=== PATIENT | female | born 1975 | race Caucasian/White ===

== ENCOUNTER 2019-02-01 12:41 | Outpatient (REF) | payer OTHER, SELFPAY ==
--- NOTE | 2019-02-01 10:15 | PAPFT_PTH ---
PATIENT: Lolita Guardado LOC: [facility] U#:[id number] AGE/SX: 43/F ROOM: RE02/01/[address]: Leonor Jensen : 1975 BED: DIS: 02/01/2019 SPEC #: [id number] RECD: 02/01/19 13:08 STATUS: TSERING REQ #: [id number] CHINO: 02/01/19 10:[address]: Leonor Jensen DEPT: [facility] Cytology RECD BY: Aura Burr Tissues: 1 - CX/ENDOCX FOR PAP SMEARS Procedures: PAP THIN PREP/[facility] Screening Comments: [id number]
== END 2019-02-01 13:01 ==
LOC: NCHCN 12:41
PROVIDERS: PCP Nurse Practitioner Family; Visit Provider Nurse Practitioner Family
DX: Z00.00 Encounter for general adult medical examination without abnormal findings (principal); Z12.4 Encounter for screening for malignant neoplasm of cervix
CPT/HCPCS: 88142

== ENCOUNTER 2019-02-08 09:17 | Outpatient (REF) | payer OTHER, SELFPAY ==
[2019-02-08 13:54] LABS: Anion Gap 7.4 mmol/L (3-11); BUN 17 mg/dL (7-18); CO2 27.6 mmol/L (21.0-32.0); Calcium 8.6 mg/dL (8.5-10.1); Chloride 106 mmol/L (98-107); Cholesterol 177 mg/dL (50-200); Glucose 91 mg/dL (70-100); HDL Cholesterol 69 mg/dL (40-60); LDL CHOLESTEROL 93 mg/dL (<100); Potassium 4.6 mmol/L (3.5-5.1); Sodium 141 mmol/L (136-145); TSH (W/Ref FT4) 1.69 uIU/mL (0.358-3.74); Triglyceride 45 mg/dL (30-150)
== END 2019-02-08 09:37 ==
LOC: NCHCN 09:17
PROVIDERS: PCP Nurse Practitioner Family; Visit Provider Nurse Practitioner Family
DX: Z00.00 Encounter for general adult medical examination without abnormal findings (principal); Z13.29 Encounter for screening for other suspected endocrine disorder; Z13.228 Encounter for screening for other metabolic disorders; Z13.220 Encounter for screening for lipoid disorders
CPT/HCPCS: 80048; 80061; 83721; 84443

== ENCOUNTER 2022-01-31 01:35 | Outpatient (REF) | payer OTHER, SELFPAY ==
[2022-01-31 16:20] LABS: BUN 26 mg/dL (7-18); CREATININE 0.7 mg/dL (0.55-1.02); Calcium 8.6 mg/dL (8.5-10.1); Calculated LDL 102 mg/dL (<100); Chloride 108 mmol/L (98-107); Cholesterol 179 mg/dL (<200); Glucose 97 mg/dL (74-106); HDL Cholesterol 71 mg/dL (40-60); Potassium 4.5 mmol/L (3.5-5.1); Sodium 143 mmol/L (136-145); Triglyceride 33 mg/dL (<150)
== END 2022-01-31 01:36 | disposition home or self-care (01) ==
LOC: NCHCN 01:35
PROVIDERS: PCP Nurse Practitioner Family; Visit Provider Nurse Practitioner Family
DX: Z00.00 Encounter for general adult medical examination without abnormal findings (principal); Z13.228 Encounter for screening for other metabolic disorders; Z13.220 Encounter for screening for lipoid disorders
CPT/HCPCS: 80048; 80061

== ENCOUNTER 2022-02-18 17:06 | Outpatient (REF) | payer OTHER, SELFPAY ==
--- NOTE | 2022-02-18 15:50 | PAPFT_PTH ---
PATIENT: Lolita Guardado LOC: [facility] #:[id number] AGE/SX: 46/F ROOM: RE02/18/[address]: Leonor Jensen : 1975 BED: DIS: 02/18/2022 SPEC #: [id number] RECD: 02/18/22 18:33 STATUS: TSERING REJames #: [id number] CHINO: 02/18/22 15:[address]: Leonor Jensen DEPT: [facility] Cytology RECD BY: Aura Burr Tissues: 1 - CX/ENDOCX FOR PAP SMEARS Procedures: PAP THIN PREP/[facility] Screening HPV DNA PROBE Comments: [id number]
== END 2022-02-18 17:07 | disposition home or self-care (01) ==
LOC: NCHCN 17:06
PROVIDERS: PCP Nurse Practitioner Family; Visit Provider Nurse Practitioner Family
DX: Z00.00 Encounter for general adult medical examination without abnormal findings (principal); Z12.4 Encounter for screening for malignant neoplasm of cervix; Z11.51 Encounter for screening for human papillomavirus (HPV)
CPT/HCPCS: 88142; 87624

== ENCOUNTER → 2022-03-06 01:46 | Outpatient (CLI) | payer OTHER, SELFPAY ==
--- NOTE | 2022-03-06 | DI.MRI_ITS ---
Exam(s) MR BRAIN WO/W EXAM: MR BRAIN WO/W CLINICAL HISTORY: FAM HX MULTIPLE SCLEROSIS Z84.89 MUSCLE WEAKNESS M62.81 VISION CHANGES H53. TECHNIQUE: Multiplanar multisequence MRI of the brain was performed. Both noninfused and contrast i nfused sequences were performed. IV Contrast injected was 11 cc Dotarem. COMPARISON: No exams were available for comparison FINDINGS: CEREBRAL PARENCHYMA: No evidence of intracranial hemorrhage, mass effect nor shift of midline structu re. No extraaxial fluid collections. Ventricles are not enlarged nor shifted. There is no significant focal signal abnormality in the cerebellar hemispheres nor within the eldon, m idbrain, and thalami. There is no abnormal signal abnormality in the periventricular white matter. DWI: No areas of restricted diffusion evident. SWI: No evidence of microhemorrhages. There are no ring enhancing lesions in the brain. There is no abnormal meningeal enhancement. PITUITARY GLAND: The pituitary gland appears confined to the floor of the sella turcica, consistent w ith empty sella syndrome. There is no deviation of the pituitary infundibulum. No masses in the sup rasellar cistern. Optic chiasm above this level unremarkable. FLOW VOIDS: The expected flow void are noted. No evidence of obvious aneurysm nor obvious vascular ma lformation. PARANASAL SINUSES: The visualized paranasal sinuses appear unremarkable. ORBITS: No obvious abnormal findings. IMPRESSION: 1. No evidence of demyelinating disease (given the family history here). 2. No abnormal enhancing intracranial findings. 3. Empty sella syndrome noted. The pituitary gland is confined to the inferior aspect of the sella turcica. DATA REPOSITORY:
[2022-03-06] MEDS: Normal Saline Flush 10 ML SYR IVP (10:29)
== END ==
PROVIDERS: PCP Nurse Practitioner Family; Visit Provider Nurse Practitioner Family
DX: H53.9 Unspecified visual disturbance (principal); M62.81 Muscle weakness (generalized); Z84.89 Family history of other specified conditions
CPT/HCPCS: 70553

== ENCOUNTER 2023-10-22 11:25 | Outpatient (REF) | payer OTHER, SELFPAY | END 2023-10-22 11:26 | disposition home or self-care (01) | LOC: LBN 11:25 | PROVIDERS: PCP Nurse Practitioner Family; Visit Provider Nurse Practitioner Family | DX: J02.9 Acute pharyngitis, unspecified (principal) | CPT/HCPCS: 87070 ==

== ENCOUNTER 2024-01-13 15:05 | Outpatient (REF) | payer OTHER, SELFPAY ==
[2024-01-13 16:24] LABS: Abs Immature Grans 0.01 10^3/uL (0.0-0.06); Absolute Basophil Count 0.05 10^3/uL (0.0-0.2); Absolute Eosinophil Count 0.14 10^3/uL (0.0-0.7); Absolute Lymphocyte Count 2.39 10^3/uL (1.2-3.4); Absolute Monocyte Count 0.42 10^3/uL (0.1-0.8); Absolute Neutrophil Count 3.61 10^3/uL (1.2-6.7); Basophils % 0.8; Eosinophils % 2.1; Immature Grans % 0.2; Lymphocytes % 36.1; MCH 28.5 pg (27.0-33.0); MCHC 33.3 % (32.0-36.0); MCV 86 fL (80-95); MPV 10.8 fL (8.0-11.0); Monocytes % 6.3; Neutrophils % 54.5; Platelet Count 312 10^3/uL (130-400); RBC 4.56 10^6/uL (3.93-5.22); RDW 12.5 % (11.7-14.6); RDW-SD 38.7 fL; WBC 6.62 10^3/uL (4.4-10.8)
[2024-01-13 16:58] LABS: Hemoglobin A1C 5.4 % (<5.7)
[2024-01-13 17:10] LABS: ALT 34 U/L (14-59); AST 26 U/L (15-37); Albumin 4.2 g/dL (3.4-5.0); Alkaline Phosphatase 73 U/L (46-116); Anion Gap 10.2 mmol/L (3-11); BUN 14 mg/dL (7-18); Bilirubin, Total 0.5 mg/dL (0.2-1.0); CO2 26.8 mmol/L (21.0-32.0); CREATININE 0.7 mg/dL (0.55-1.02); Calcium 9.2 mg/dL (8.5-10.1); Calculated LDL 110 mg/dL (<100); Chloride 106 mmol/L (98-107); Cholesterol 199 mg/dL (<200); Estimated GFR 106.62 (mL/min/1.73m2); Glucose 89 mg/dL (74-106); HDL Cholesterol 76 mg/dL (40-60); Potassium 4.1 mmol/L (3.5-5.1); Sodium 143 mmol/L (136-145); TSH (W/Ref FT4) 1.49 uIU/mL (0.36-3.74); Total Protein 7.5 g/dL (6.4-8.2); Triglyceride 68 mg/dL (<150); Vitamin B12 821 pg/mL (193-986)
[2024-01-13 17:20] LABS: Folate > 20.0 ng/mL (8.6-20.0)
[2024-01-13 18:20] LABS: Vitamin D 25 Total 43.4 ng/mL (30-100)
== END 2024-01-13 15:06 | disposition home or self-care (01) ==
LOC: NCHCN 15:05
PROVIDERS: Visit Provider Nurse Practitioner Family
DX: Z13.6 Encounter for screening for cardiovascular disorders (principal); Z13.1 Encounter for screening for diabetes mellitus; R53.83 Other fatigue; Z13.228 Encounter for screening for other metabolic disorders
CPT/HCPCS: 80053; 80061; 82306; 82607; 82746; 83036; 84443; 85025

== ENCOUNTER → 2024-03-28 15:27 | Outpatient (CLI) | payer OTHER, SELFPAY ==
--- NOTE | 2024-03-28 15:31 | DI.RAD_ITS ---
Exam(s) XR WRIST RT COMPL NAVICULAR EXAM: XR WRIST RT COMPL NAVICULAR CLINICAL HISTORY: pain in rt wrist s/p FOOSH 1 week ago, M25.531. TECHNIQUE: 2D digital imaging was performed. COMPARISON: No exams were available for comparison FINDINGS: Four views. No evidence of acute fracture nor dislocation nor significant ulnar variance. Scaphoid and scapholun ate lunate distance are normal. No abnormal soft tissue calcifications. Bone density normal. No os seous lesions. No degenerative changes. No radiopaque foreign bodies. IMPRESSION: No acute osseous findings in the wrist. DATA REPOSITORY: RADIATION DOSE DELIVERED:
== END ==
PROVIDERS: Visit Provider Nurse Practitioner Family
DX: M25.531 Pain in right wrist (principal)
CPT/HCPCS: 73110

== ENCOUNTER → 2024-04-25 12:37 | Outpatient (CLI) | payer OTHER, SELFPAY ==
--- NOTE | 2024-04-25 | DI.RAD_ITS ---
Exam(s) XR HAND RT COMPLETE XR WRIST RT COMPLETE EXAM: XR WRIST RT COMPLETE CLINICAL HISTORY: PAIN RT WRIST M25.531. TECHNIQUE: 2D digital imaging was performed. Three views of the hand and wrist. COMPARISON: CR XR WRIST RT COMPL NAVICULAR from 03/28/2024 CR XR HAND RT COMPLETE from 04/25/2024 FINDINGS: BONES: No acute fracture is present. No bony destructive lesion is seen. JOINTS: The carpal bones are normally aligned. No significant joint space narrowing. SOFT TISSUE: Normal. IMPRESSION: Unremarkable radiographs of the right hand and wrist. DATA REPOSITORY: RADIATION DOSE DELIVERED:
== END ==
PROVIDERS: Visit Provider Nurse Practitioner Family
DX: M25.531 Pain in right wrist (principal); M79.641 Pain in right hand
CPT/HCPCS: 73110; 73130

== ENCOUNTER 2024-05-27 00:04 | Outpatient (CLI) | payer OTHER, SELFPAY ==
--- NOTE | 2024-05-27 | DI.MAMMO_ITS ---
Exam(s) MAMMO SCREENING EXAM: MAMMO SCREENING CLINICAL HISTORY: SCREENING, Z12.31. TECHNIQUE: Bilateral full field digital CC and MLO mammographic images were obtained with 3D tomosyn thesis and utilizing computer aided detection (CAD). COMPARISON: Prior mammograms were reviewed. Most recent was 2015 FINDINGS: There has been no significant change in the appearance and distribution of the fibroglandular tissue. There are no CAD designations. There are no new spiculated masses nor malignant appearing microcalcification groups. There is no significant architectural distortion nor skin thickening-retraction. IMPRESSION: No radiographic evidence of malignancy. BI-RADS Category 1 - Negative Breast Density - Category B - Scattered areas of fibroglandular density Breast density Category C or D implies that the patient has dense breast tissue. Dense breast tissue can make it harder to find cancer on a mammogram. Dense breast tissue is also associated with an incr eased risk of breast cancer. This information about the result of the mammogram report was provided to the patient to raise their awareness. Use this report when you speak with the patient about their risks for breast cancer, which includes their family history. At that time, you may recommend additional screening tests (Ultrasoun d or MRI) as these tests may add significant information. A negative radiographic report should not delay biopsy if a dominant or clinically suspicious mass is present. Up to ten percent of cancers are not identified on mammography. A negative report may reinforce clinical impression. Adenosis and dense breasts may obscure an underlying neoplasm. False positive reports average 6 to 10%. Patient will receive a letter notifying them of these results.
== END 2024-05-27 00:24 ==
PROVIDERS: PCP Nurse Practitioner Family; Visit Provider Nurse Practitioner Family
DX: Z12.31 Encounter for screening mammogram for malignant neoplasm of breast (principal)
CPT/HCPCS: 77063; 77067

== ENCOUNTER 2024-07-29 06:57 | Day surgery (SDC) | payer OTHER, SELFPAY ==
--- NOTE | 2024-07-28 15:36 | W.PM.DSUDISC ---
Date of service: 07/29/24 Time of Service: 08:36 Discharge Plan Disposition Patient Disposition: Home Condition: Good Discharge Details Reason For Visit: screening colonoscopy Attending Provider: Raj Nava Primary Care Provider: Jesenia Wang Home Meds and New Rx's Prescriptions: Continued multivitamin Tablet 1 tab PO DAILY cholecalciferol (vitamin D3) 50 mcg (2,000 unit) capsule 50 mcg PO DAILY vitamin B complex-folic acid [Super B Maxi Complex] 0.4 mg tablet 1 tab PO DAILY ginkgo biloba leaf extract 60 mg tablet See Rx Instructions PO .COMPLEX Rx Instructions: orally as directed; give with meal/snack fexofenadine 180 mg tablet 180 mg PO DAILY fluoxetine 10 mg capsule 10 mg PO DAILY fluticasone propionate 16 GM spray,suspension 1 spry NS DAILY acetaminophen [Mapap Extra Strength] 500 MG tablet 1,000 mg PO DAILY PRN valacyclovir 1,000 MG tablet 1,000 mg PO TID Qty: 21 0RF Discontinued bisacodyl [Dulcolax (bisacodyl)] 5 mg tablet,delayed release (DR/EC) 5 mg PO ONCE Qty: 4 0RF Rx Instructions: Take per colonoscopy instructions provided by ordering providers office polyethylene glycol 3350 17 gram/dose powder 17 g PO ONCE Qty: 238 0RF Rx Instructions: Take per colonoscopy instructions provided by ordering providers office Discharge Instructions Instructions: Diverticulosis Additional Instructions: Lolita, This very nice to meet you today, and I hope you are comfortable during the procedure. Everything went very smoothly. Your prep was excellent and I could see everything fine. I did see just a few scattered diverticula along 1 part of your colon known as the sigmoid. Diverticula are little weak spots in the muscular part of the colon wall. Although they can get infected and inflamed during flareups that we refer to as diverticulitis, most of the patients that I do colonoscopies and have them, or never it at all bothered by them. Have attached a little bit of information here about typical approaches to diverticular management. With an otherwise negative screening colonoscopy, my recommendation would be to repeat the test in 10 years. If you have any questions at all, or need anything, please do not hesitate to ask. 1. If tolerated, consume a soft, low fiber diet for 1-2 days. 2[address] Do not drive, drink alcohol, operate machinery, make critical decisions, or do activities that require coordination or balance for 24 hours. 3. Because air was put into your colon during the procedure, expelling air from your rectum (passing gas or farting) is normal. 4. You may not have a bowel movement for 1-3 days because of the colonoscopy prep. This is normal. 5. Go directly to the emergency room if you notice any of the following: Develop chills (warm to touch), or if you have a thermometer and your temperature is above 101 Difficulty breathing or difficultly swallowing Persistent vomiting Severe abdominal pain, other than gas cramps Severe chest pain Black, tarry stools Any bleeding ? exceeding one tablespoon 6. Call your physician if the site where your intravenous was started becomes red, swollen, painful, and warm to touch. 7. Your physician has reviewed your pre-procedure medications. Please continue to take those medications as previously ordered. You will be given specific information/education regarding any changes to your medications before leaving. Activity:: Activity as Tolerated Diet:: As Tolerated Discharge Orders Discharge Orders: Discharge Order (Routine); Ordered 07/28/24 Ordered By: Raj Nava DS: Diagnosis Discharge Diagnosis (1) Encounter for screening colonoscopy: Status: Acute Asessment and Plan: Diverticulosis; otherwise negative colonoscopy
--- NOTE | 2024-07-28 15:39 | COLE_ITS ---
Date of service: 07/29/24 Time of Service: 08:37 Colonoscopy Report Date of procedure: 07/29/24 Pre-op diagnosis general: screening colonoscopy Post-op diagnosis procedure note: other (Trace diverticulosis) Procedure: colonsocopy Surgeon: Raj Nava Anesthesia Type: General:No Airway Estimated blood loss (mL): 0 Pathology: none sent Complications: None Disposition: same day Indications: Lolita is a 49 year old woman who needs a screening colonoscoy Prep: Miralax/Dulcolax Procedure Start Time: 08:22 Procedure End Time: 08:31 Retraction Time: 6 Findings: Few diverticula scattered through the sigmoid colon; otherwise negative Procedure Description: After the induction of anesthesia, and with the patient in left lateral decubitus position, I began by performing an external anorectal exam.? Perineum and skin were normal, as was the anal verge.? There was no evidence of external hemorrhoids.? Next, I performed a digital rectal exam.? I did not appreciate any abnormal findings.? Next, I advanced a colonoscope into the rectal vault.? I performed retroflexion.? This appeared normal.? Using insufflation, I then advanced the colonoscope beyond the rectal folds and into the sigmoid colon before advancing towards the cecum.? The quality of the prep was outstanding.? The scope was noted to be in the cecum by identification of the ileocecal valve and appendiceal orifice.? I then began withdrawing the colonoscope using repeated irrigation as necessary for full evaluation of the colonic mucosa. ?There were a few diverticula scattered through the sigmoid colon. Once the scope was withdrawn to the level of the rectum, great care was taken to examine portions of the rectal folds.? Finally, the scope was withdrawn and the patient was brought to the same-day surgery recovery unit as the anesthetic wore off. ?The findings and instructions were shared with the patient prior to discharge. [facility] [facility] Bowel Prep [facility] Bowel Prep Right Colon: 3 Left Colon: 3 Transverse Colon: 3 Total Score: 9
[2024-07-29 07:05] VITALS: BP 123/82; PULSE 72; RESP 16; TEMP 36.2; O2SAT 97
[2024-07-29] MEDS: Normal Saline Flush 10 ML SYR IV (07:31)
--- NOTE | 2024-07-29 07:43 | ANES.PREOP_ITS ---
General Info Date of Service Date Performed: 07/29/24 Height: 5 ft 3 in Weight: 65.1 kg Body Mass Index (BMI): 25.4 Surgical Procedure: Operation Date: 07/29/24 08:20 Proposed Procedure Side Surgeon ellen Nava MD Meds Allergies and Home Medications Allergies Allergy/AdvReac Type Severity Reaction Status Date / Time Sulfa (Sulfonamide Allergy Mild Skin Rash Verified 07/29/24 07:20 Antibiotics) Home Medication ?Medication ?Instructions ?Recorded fluticasone propionate 50 1 spry NS DAILY 12/27/12 mcg/actuation nasal spray,suspension acetaminophen 500 mg tablet (Mapap 1,000 mg PO DAILY PRN 01/11/13 Extra Strength) valacyclovir 1 gram tablet 1,000 mg PO TID #21 tabs 07/02/15 cholecalciferol (vitamin D3) 50 50 mcg PO DAILY 02/20/22 mcg (2,000 unit) capsule fexofenadine 180 mg tablet 180 mg PO DAILY 02/20/22 ginkgo biloba leaf extract 60 mg See Rx Instructions PO .COMPLEX 02/20/22 tablet vitamin B complex-folic acid 0.4 1 tab PO DAILY 02/20/22 mg tablet (Super B Maxi Complex) multivitamin 1 tab PO DAILY 06/25/22 fluoxetine 10 mg capsule 10 mg PO DAILY 05/23/24 Current Visit Medications: Current Medications Generic Name Dose Route Start Last Admin Trade Name Freq PRN Reason Stop Dose Admin Ringer's Solution 500 mls @ 80 mls/hr 07/29/24 06:00 IV 08/27/24 23:59 INFUSION [facility] IV Miscellaneous Supplies 1 each 07/29/24 06:00 Iv Access IV 08/27/24 23:59 DIRECTED EDGAR Ondansetron HCl 4 mg 07/28/24 15:40 Ondansetron 4 Mg/2 Ml Vial IVP 08/27/24 15:39 Q4H PRN PRN Nausea / Vomiting Sodium Chloride 0 ml 07/29/24 06:00 07/29/24 07:31 Normal Saline Flush 10 Ml Syr IV 08/27/24 23:59 10 ml PRN PRN Administration Sodium Chloride 0 ml 07/29/24 06:00 Normal Saline 10 Ml Vial IJ 08/27/24 23:59 DIRECTED PRN Sterile Water 0 ml 07/29/24 06:00 Water,Injection,Sterile 10 Ml Vial IJ 08/27/24 23:59 DIRECTED PRN COUNT INCLUDES THE [facility] Active Problems Active Problems: Problem Status Onset Code Encounter for screening colonoscopy Acute Z12.11 Long COVID Acute U09.9 Irritable bowel syndrome Chronic K58.9 Allergic rhinitis Acute J30.9 Anxiety and depression Chronic F41.9, F32.A Recurrent herpes labialis Acute B00.1 Vision changes Acute H53.9 Muscle weakness Acute M62.81 Shingles Acute B02.9 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 Cold sore Acute B00.1 Medical History Medical History History of blood transfusion Surgical History Surgical History History of colonoscopy (~06/07/13) Tobacco Smoking/Tobacco Use Status: Never Alcohol Alcohol Intake: current Alcohol intake frequency: holidays/special occasions only Alcohol type: hard liquor Substance Use Substance use: Never Substance use type: does not use Vital Signs and Lab Results Vital Signs Most Recent Vital Signs in EMR: Most Recent Vital Signs Temp Pulse Resp BP Pulse Ox 36.2 C L 72 16 123/82 97 07/29/24 07:05 07/29/24 07:05 07/29/24 07:05 07/29/24 07:05 07/29/24 07:05 Point of Care Results Point of Care Results: POC- Test(urine) Negative 07/29/24 07:35 Lab Results Blood Type / Crossmatch: No Data to Display Complete Blood Count: No Data to Display Complete Metabolic Panel: No Data to Display Liver Function Panel: No Data to Display Coagulation Panel: No Data to Display Cardiac Panel: No Data to Display Arterial Blood Gas: No Data to Display Venous Blood Gas: No Data to Display Pancreas Panel: No Data to Display Thyroid Panel: No Data to Display Infectious Disease: No Data to Display Blood Cultures: No Data to Display Toxicology Panel: No Data to Display Panel: No Data to Display Anesthesia Assessment and Plan Anesthesia History Personal History: No History of Anesthesia Complications Family History: No Family History of Anesthesia Complications Exercise Tolerance Exercise Tolerance: Metabolic Equivalents>4 Pertinent Negatives Pertinent Negatives: No Symptoms of GERD, No Major Cardiovascular Symptoms or Complaints, No Major Pulmonary Symptoms or Complaints and No History of CVA/TIA Cardiac & Pulmonary Exam Cardiac Exam: Normal S1/S2 Heart Sounds Pulmonary Exam: Clear Bilateral Breath Sounds Implantable Cardiac Device Does patient have a Pacemaker or an ICD?: No Airway Exam Known Difficult Airway: No Mallampati Class: 2 Mouth Opening: Normal (> 3cm) Thyromental Distance: Greater than 3 cm Neck Range of Motion: Full ROM Neck Circumference: Normal Teeth Condition: Normal Dentition ASA Classification ASA Score: ASA 2 Emergency Case?: No NPO Status NPO Status: NPO Clears >2 hours, Solids >8 hours Status Status: Negative HCG Anesthesia Plan Resuscitation Status: Full Code Anesthesia Technique: General Anesthesia Airway Planned: Natural Airway Monitors Used: Standard Monitors Preoperative Comments:: 49 y/o female with history of anxiety, depression, shingles and IBS resents for colonoscopy screening. Her last screening was in 2012, which was unremarkable.
[2024-07-29 07:47] VITALS: BMI 25.4
[2024-07-29 08:37] VITALS: BP 106/68; PULSE 61; RESP 16; TEMP 36.5; O2SAT 98
[2024-07-29 08:56] VITALS: BP 118/67; PULSE 63; RESP 18; TEMP 36.6; O2SAT 98
--- NOTE | 2024-07-29 09:03 | W.ANESPOSTOP ---
Postoperative Evaluation Date, Time and Location Date Performed: 07/29/24 Time Performed: 08:39 Patient Location: Day Surgery Unit Vital Signs Most Recent Imported Vital Signs: Most Recent Vital Signs Temp Pulse Resp BP Pulse Ox 36.6 C 63 18 118/67 98 07/29/24 08:56 07/29/24 08:56 07/29/24 08:56 07/29/24 08:56 07/29/24 08:56 Pain Score Most Recent Pain Score: Most Recent Pain Score Pain Level 0 07/29/24 08:56 Assessment Mental Status: Awake (Alert & Oriented to Patient Baseline) Airway and Respiratory Function: Patent airway with normal (patient baseline) respiratory exam Cardiovascular Function: Hemodynamically Stable Hydration Status: Adequately Hydrated Nausea & Vomiting: No Nausea or Vomiting Pain: Pt. Denies Any Pain Peripheral Nerve Block: Patient did not receive a nerve block
== END 2024-07-29 09:08 | disposition home or self-care (01) ==
LOC: SUR 06:59
PROVIDERS: PCP Nurse Practitioner Family; Visit Provider Surgery
PROC: 0DJD8ZZ Inspection of Lower Intestinal Tract, Via Natural or Artificial Opening Endoscopic (ICD-10-PCS; CPT 45378; principal; 2024-07-29 08:15)
DX: Z12.11 Encounter for screening for malignant neoplasm of colon (principal); K57.30 Diverticulosis of large intestine without perforation or abscess without bleeding
CPT/HCPCS: 45378; 81025; J2405; J2704

== ENCOUNTER 2025-06-14 02:20 | Outpatient (CLI) | payer OTHER, SELFPAY ==
[2025-06-14 13:45] LABS: Abs Immature Grans 0.01 10^3/uL (0.0-0.06); HCT 38.0 % (36.0-46.0); HGB 12.3 g/dL (11.2-15.7); Immature Grans % 0.1 %; MCH 28.1 pg (27.0-33.0); MCHC 32.4 % (32.0-36.0); MCV 87 fL (80-95); MPV 9.8 fL (8.0-11.0); Platelet Count 295 10^3/uL (130-400); RBC 4.38 10^6/uL (3.93-5.22); RDW 13.5 % (11.7-14.6); RDW-SD 42.6 fL; WBC 6.96 10^3/uL (4.4-10.8)
[2025-06-14 14:03] LABS: ESR 4 mm/hr (0-20)
[2025-06-14 15:06] LABS: ALT 28 U/L (14-59); AST 16 U/L (15-37); Albumin 4.0 g/dL (3.4-5.0); Alkaline Phosphatase 98 U/L (46-116); Anion Gap 3.7 mmol/L (3-11); BUN 16 mg/dL (7-18); Bilirubin, Total 0.4 mg/dL (0.2-1.0); CO2 33.3 mmol/L (21.0-32.0); Calcium 9.2 mg/dL (8.5-10.1); Chloride 105 mmol/L (98-107); Estimated GFR 42.19 (mL/min/1.73m2); Glucose 93 mg/dL (74-106); Magnesium 2.2 mg/dL (1.8-2.4); Potassium 4.9 mmol/L (3.5-5.1); Sodium 142 mmol/L (136-145); TSH (W/Ref FT4) 1.26 uIU/mL (0.36-3.74); Total Protein 7.7 g/dL (6.4-8.2)
[2025-06-14 15:09] LABS: C-Reactive Protein < 0.50 mg/dL (<or=0.5)
== END 2025-06-14 02:21 | disposition home or self-care (01) ==
LOC: LBO 02:22
PROVIDERS: PCP Nurse Practitioner Family; Visit Provider Student in an Organized Health Care Education/Training Program
DX: R22.1 Localized swelling, mass and lump, neck (principal); R53.83 Other fatigue
CPT/HCPCS: 80053; 85652; 83735; 84443; 85025; 86140

== ENCOUNTER 2025-06-29 04:07 | Outpatient (CLI) | payer OTHER, SELFPAY ==
[2025-06-29 14:35] LABS: Glucose Negative (Negative)
[2025-06-29 19:07] LABS: Anion Gap 13.3 mmol/L (3-11); BUN 17 mg/dL (7-18); CO2 27.7 mmol/L (21.0-32.0); Calcium 8.9 mg/dL (8.5-10.1); Chloride 101 mmol/L (98-107); Estimated GFR 89.71 (mL/min/1.73m2); Glucose 75 mg/dL (74-106); Potassium 3.7 mmol/L (3.5-5.1); Sodium 142 mmol/L (136-145)
== END 2025-06-29 04:08 | disposition home or self-care (01) ==
PROVIDERS: PCP Nurse Practitioner Family; Visit Provider Student in an Organized Health Care Education/Training Program
DX: R79.89 Other specified abnormal findings of blood chemistry (principal)
CPT/HCPCS: 36415; 80048; 81003